=== PATIENT | female | born 2000 | race Caucasian/White ===

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

== ENCOUNTER 2021-11-27 22:49 | Inpatient (IN) ==
[2021-11-27] MEDS ORDERED: OXYTOCIN 30 UNITS/500 ML BAG IV PRN (23:21)
[2021-11-27] MEDS ORDERED: LIDOCAINE 1% LOCAL 20 ML VIAL INFIL PRN (23:21)
[2021-11-27] MEDS ORDERED: BUTORPHANOL TARTRATE 1 MG/ML VIAL IV PRN (23:25)
[2021-11-27] MEDS: LACTATED RINGER'S 1,000 ML IV PRN (23:34)
[2021-11-27] MEDS ORDERED: SODIUM CHLORIDE 0.9% INJ 10 ML VIAL ONE (23:45)
[2021-11-27] MEDS ORDERED: fentaNYL citrate 100 MCG/2 ML VIAL ONE (23:45)
[2021-11-27] MEDS ORDERED: ePHEDrine sulfate 50 MG/ML AMP ONE (23:45)
[2021-11-27] MEDS ORDERED: BUPIVACAINE 0.25% 30 ML VIAL ONE (23:46)
[2021-11-27] MEDS ORDERED: fentaNYL 2MCG/ML ROPIVACAINE 1.25MG/ML 100 ML BAG EPI ONE (23:46)
[2021-11-27] MEDS ORDERED: LIDOCAINE 2%/EPINEPHRINE 1:200,000 20 ML SDV ONE (23:46)
[2021-11-27 23:47] LABS: Hematocrit (blood only) 40.1 % (34.1-44.9); Hemoglobin 13.9 g/dl (12.0-16.0); Mean Corpuscular Hemoglobin 29.8 pg (25.0-34.0); Mean Corpuscular Hgb Conc 34.7 g/dL (32.0-36.0); Mean Corpuscular Volume 85.9 fL (80.0-100.0); Mean Platelet Volume 10.9 fL (9.4-12.3); Platelet Count 236 K/uL (130-400); RDW Coefficient of Variation 12.4 % (11.5-14.5); RDW Standard Deviation 38.5 fL (36.4-46.3); Red Blood Count 4.67 M/uL (3.93-5.22); White Blood Count 14.76 K/ul (4.8-10.8)
[2021-11-28] MEDS ORDERED: NALBUPHINE HCL INJ 10 MG/ML AMP IV PRN (00:20)
[2021-11-28] MEDS ORDERED: NALOXONE HCL 1 MG in SODIUM CHLORIDE 0.9% 1000ML 1,000 ML IV PRN (00:20)
[2021-11-28] MEDS ORDERED: fentaNYL 2MCG/ML ROPIVACAINE 1.25MG/ML 100 ML BAG EPI PRN (00:20)
[2021-11-28] MEDS ORDERED: NALOXONE HCL 0.4 MG/1 ML VIAL/CARP IV PRN (00:20)
[2021-11-28] MEDS ORDERED: ONDANSETRON INJ 2 MG/ML 2 ML VIAL IV PRN ×2 (00:20→19:50)
[2021-11-28] MEDS ORDERED: diphenhydrAMINE 50 MG/ML VIAL IV PRN (00:20)
[2021-11-28] MEDS ORDERED: ePHEDrine sulfate 50 MG/ML AMP IV PRN (00:20)
--- NOTE | 2021-11-28 00:24 | Anesthesiology Consultation ---
Date of Service November 28, 2021 Assessment & Plan Chart Review Chart Review: Patient NOT seen in Pre Admission Testing and Acceptable Risk for Labor Epidural Consults Requested none ASA ASA2 Proposed Anesthesia Anesthesia Type: Labor Epidural and CSE Risk / Benefits Reviewed With: PT / POA / Parent / Guardian, Accepts Plan and Informed Consent Obtained History Height/Weight Height: 5 ft 6 in Weight: 74.843 kg Allergies Allergy/AdvReac Type Severity Reaction Status Date / Time No Known Allergies Allergy Unverified 05/16/19 04:22 Medications Home Medications Medication Instructions Recorded Confirmed Last Taken vit no.95-ferrous 1 tab PO 11/27/21 11/27/21 fumarate 28 mg-folic acid 800 mcg tablet () Active Medications Generic Name Dose Route Start Last Admin Trade Name Freq PRN Reason Stop Dose Admin Butorphanol Tartrate 1 mg 11/27/21 23:25 11/27/21 23:37 Butorphanol Tartrate 1 Mg/Ml Vial IV 12/27/21 23:24 1 mg Q1H PRN Administration Pain Lactated Ringer's 1,000 mls @ 125 mls/hr 11/27/21 23:21 11/27/21 23:34 Lr IV 11/29/21 23:20 999 mls/hr .Q8H PRN Administration L&D Protocol Protocol NPO Date Last Intake of Fluids: 11/27/21 Time Last Intake of Fluids: 23:00 Date Last Intake of Solids: 11/27/21 Time Last Intake of Solids: 19:00 Past Medical History Medical History No chronic diseases present Exercise / Class Metabolic Activity II 4-5 Yardwork/Stairs/Walk up hill Past Surgical History Surgical History No significant past surgical history Past Anesthesia History No Hx of Anesthesia Complications and No Family Hx of Anesthesia Complications History of PONV No Hx of PONV and No Hx of Motion Sickness Social History Smoking Status: Never smoker Hx Alcohol Use: No Hx Substance Use: No Review of Systems no chest pain or sob Physical Exam Vital Signs Last Vital Signs Temp 37.0 C 11/27/21 23:07 Pulse 88 11/28/21 00:20 Resp 18 11/27/21 23:07 BP 135/89 11/28/21 00:20 Pulse Ox 89 L 11/28/21 00:19 SpO2 94 ENMT Mouth: no TMJ abnormality Thyromental Distance: > or= 3.5 Finger Breadths Mallampati Class: II Neck normal visual inspection Respiratory normal respiratory effort Auscultation: lungs clear to auscultation bilaterally Cardiovascular Rate/Rhythm: regular rate and regular rhythm Musculoskeletal Spine: normal cervical ROM Neurologic moves all extremities Psychiatric Orientation: alert and oriented x 3 Testing Laboratory Results 11/27/21 23:36
[2021-11-28] MEDS: LACTATED RINGER'S 1,000 ML IV PRN (00:35)
[2021-11-28] MEDS ORDERED: HYDROCORTISONE ACETATE 25 MG SUPP PR PRN (05:05)
[2021-11-28] MEDS ORDERED: OXYTOCIN 30 UNITS/500 ML BAG IV PRN (05:05)
[2021-11-28] MEDS ORDERED: METHYLERGONOVINE MALEATE 0.2 MG/ML AMP IM ONE (05:05)
[2021-11-28] MEDS ORDERED: ACETAMINOPHEN 325 MG TAB PO PRN (05:05)
[2021-11-28] MEDS ORDERED: DIPHTHERIA/TETANUS/PERTUSSIS 0.5 ML SYR/VIAL IM ONE (05:05)
[2021-11-28] MEDS ORDERED: oxyCODONE/ACETAMINOPHEN 5mg/325mg TAB PO PRN (05:05)
[2021-11-28] MEDS ORDERED: ACETAMINOPHEN W/CODEINE #3 1 TAB PO PRN (05:05)
[2021-11-28] MEDS ORDERED: BENZOCAINE 20% AER SPR 82.5 GM CAN EXT PRN (05:05)
[2021-11-28] MEDS ORDERED: METHYLERGONOVINE MALEATE 0.2 MG/ML AMP ONE (05:14)
--- NOTE | 2021-11-28 05:34 | Delivery Summary ---
DELIVERY NOTE: She is 1, para 1, blood type A positive, group B strep negative. Followed in our office for care and delivery, had an uneventful course. Was admitted in spontan eous labor. When she arrived, she was about 3-4 cm dilated with frequent contractions and rated her pain about an 8/10. She was fluid loaded, given a dose of IV Stadol and then she received epidural. She continued to have good regular contractions and dilated up at a good rate. Her membranes ruptur ed spontaneously. She eventually pushed out a live female via direct occiput anterior positio n over an intact perineum. I delivered the infant with a nuchal cord around the neck and then I, aft er delivery, allowed the cord to pulse for 1 minute before clamping and cutting the cord. Then with IV Pitocin running, the placenta was removed intact. Inspection of the perineum revealed two lacerat ions of the labia minora on either side. These were infiltrated with local and approximated with a r unning 3-0 chromic. There was also a superficial laceration of the perineum at 4 o'clock and this wa s also repaired with a running 3-0 chromic. Following this, hemostasis was good. Vaginal examinatio n revealed no hematoma formation. Estimated blood loss was 200 mL. The patient tolerated the procedu re well. Job ID: [id number]
--- NOTE | 2021-11-28 08:07 | Anesthesia Procedure Note ---
Date of Service November 28, 2021 Anesthesia Post Epidural Note Vital Signs Vital Signs: Temp Pulse Resp BP Pulse Ox 37.0 C 93 H 18 135/85 94 11/28/21 03:12 11/28/21 07:11 11/28/21 06:38 11/28/21 07:11 11/28/21 04:47 Notes Mental Status: alert / awake / arousable and participated in evaluation Nausea / Vomiting: adequately controlled Pain: adequately controlled Airway Patency, RR, SpO2: stable & adequate BP & HR: stable & adequate Hydration State: stable & adequate Anesthetic Complications: no major complications apparent and Pt Satisfied with anesthetic care Epidural: Removed without complications and With tip intact
[2021-11-28] MEDS: PRENATAL VITAMIN 1 TAB PO SCH (10:26)
[2021-11-28] MEDS: IBUPROFEN 600 MG TAB PO PRN ×2 (10:26→20:04)
[2021-11-28] MEDS: DOCUSATE SODIUM 100 MG CAP PO SCH ×2 (10:26→20:04)
[2021-11-29] MEDS: IBUPROFEN 600 MG TAB PO PRN ×4 (04:03→23:50)
[2021-11-29 06:39] LABS: Hematocrit (blood only) 38.7 % (34.1-44.9); Hemoglobin 13.4 g/dl (12.0-16.0); Mean Corpuscular Hgb Conc 34.6 g/dL (32.0-36.0); Mean Corpuscular Volume 86.6 fL (80.0-100.0); Mean Platelet Volume 10.8 fL (9.4-12.3); Platelet Count 201 K/uL (130-400); RDW Coefficient of Variation 12.8 % (11.5-14.5); RDW Standard Deviation 39.9 fL (36.4-46.3); Red Blood Count 4.47 M/uL (3.93-5.22); White Blood Count 15.88 K/ul (4.8-10.8)
[2021-11-29] MEDS: PRENATAL VITAMIN 1 TAB PO SCH (08:22)
[2021-11-29] MEDS: DOCUSATE SODIUM 100 MG CAP PO SCH ×2 (08:22→20:33)
--- NOTE | 2021-11-29 09:50 | Gynecologic Progress Note ---
Date of Service November 29, 2021 Assessment & Plan Admission and Anticipated Discharge Date Admission Date: November 27, 2021 Review of Systems Review of Systems: All systems reviewed & are unremarkable except as noted in HPI & below Physical Exam Constitutional: WD/WN, vitals as above Eyes: PERRL, conjunctivae normal, anicteric sclerae Results & Data ([facility]) Vital Signs (Past 12 Hours) Vital Signs Temp Pulse Resp BP Pulse Ox O2 Del Method 11/29/21 08:25 36.6 C 65 18 119/86 Room Air 11/29/21 03:30 36.6 C 70 18 105/72 96 Room Air 11/28/21 23:45 36.5 C 68 18 102/67 96 Room Air
--- NOTE | 2021-11-29 15:04 | Obstetrical Progress Note ---
Date of Service November 29, 2021 Assessment & Plan Admission and Anticipated Discharge Date Admission Date: November 27, 2021 Subjective abdomen soft and non tender no calf tenderness ambulating well vaginal bleeding scant hgb 13.4 Results & Data ([facility]) Vital Signs (Past 12 Hours) Vital Signs Temp Pulse Resp BP Pulse Ox O2 Del Method 11/29/21 13:00 36.6 C 86 18 119/83 Room Air 11/29/21 08:25 36.6 C 65 18 119/86 Room Air 11/29/21 03:30 36.6 C 70 18 105/72 96 Room Air
[2021-11-29] MEDS ORDERED: bisacodyL 5 MG TABEC PO SCH (20:00)
[2021-11-30] MEDS ORDERED: bisacodyL 10 MG SUPP PR PRN (05:05)
--- NOTE | 2021-11-30 06:47 | Obstetrical Progress Note ---
Date of Service November 30, 2021 Assessment & Plan Admission and Anticipated Discharge Date Admission Date: November 27, 2021 Subjective abdomen soft and non tender no calf tenderness ambulating well vaginal bleeding scant hgb 13.4 Results & Data ([facility]) Vital Signs (Past 12 Hours) Vital Signs Temp Pulse Resp BP O2 Del Method 11/30/21 00:00 36.8 C 68 16 108/68 Room Air 11/29/21 20:00 36.9 C 67 16 123/84 Room Air
[2021-11-30 07:14] LABS: Hematocrit (blood only) 35.9 % (34.1-44.9); Hemoglobin 12.2 g/dl (12.0-16.0)
[2021-11-30] MEDS: PRENATAL VITAMIN 1 TAB PO SCH (09:06)
[2021-11-30] MEDS: DOCUSATE SODIUM 100 MG CAP PO SCH (09:07)
== END 2021-11-30 13:12 | disposition home or self-care (01) | DRG 807 ==
LOC: OPB 22:49 → 4S1 22:52 → 4E2 11-28 07:25